=== PATIENT | male | born 1970 | race Caucasian/White ===

== ENCOUNTER 2017-07-12 11:29 | Emergency (ER) | payer OTHER, MEDICAID ==
[~2017-07-12] VITALS: Ht 180.3 cm; Wt 132.4 kg
== END 2017-07-12 14:47 | disposition home or self-care (01) ==
LOC: ED 11:29 → EDBD 11:31 → ED 14:47
DX: S20.211A Contusion of right front wall of thorax, initial encounter (principal); S40.011A Contusion of right shoulder, initial encounter; R11.0 Nausea; M54.5 Low back pain; V89.2XXA Person injured in unspecified motor-vehicle accident, traffic, initial encounter; Y93.89 Activity, other specified; Y92.413 State road as the place of occurrence of the external cause; Y99.8 Other external cause status